=== PATIENT | female | born 1985 | race Caucasian/White ===

== ENCOUNTER 2016-11-23 11:07 | Emergency (ER) | payer OTHER ==
[~2016-11-23] VITALS: Ht 147.3 cm; Wt 61.2 kg
[2016-11-23 11:13] VITALS: BP 105/63
--- NOTE | 2016-11-23 12:18 | NUR ---
Patient ambulated to bed 07.
--- NOTE | 2016-11-23 12:21 | NUR ---
31/F presents to ED for evaluation of N/V and abdominal pain x4 days. Patient states she has hx of cyclic vomiting syndrome. Pt also reports being approximately 5 weeks . Pt is G-1. Pt also states that d/t her condition she wants to terminate this pregancy d/t the effects on her body. Patient has had no vomiting while in ED today. Pt c/o 10/10 pain, to abdominal area. Pt is AOX4, clear speech, ambulates with steady gait. VSS.
--- NOTE | 2016-11-23 12:59 | NUR ---
Dr. Wesley evaluating patient at bedside.
--- NOTE | 2016-11-23 13:03 | NUR ---
Lab at bedside.
[2016-11-23 13:11] LABS: BASOPHILS # (AUTO) 0.2 K/uL (0.00-0.22); BASOPHILS % (AUTO) 2.2 % (0.0-2.0); EOSINOPHILS # (AUTO) 0.1 K/uL (0-0.4); EOSINOPHILS % (AUTO) 0.9 % (0.0-4.0); HEMOGLOBIN 14.5 g/dL (12.0-16.0); LYMPHOCYTES # (AUTO) 1.4 K/uL (2.5-16.5); LYMPHOCYTES % (AUTO) 19.5 % (20.5-51.1); MEAN CORPUSCULAR HEMOGLOBIN 27 pg (27-31); MEAN CORPUSCULAR HGB CONC 33 g/dL (33-37); MEAN CORPUSCULAR VOLUME 83 fL (80-94); MONOCYTES # (AUTO) 0.4 K/uL (0.8-1.0); MONOCYTES % (AUTO) 5.1 % (1.7-9.3); NEUTROPHILS # (AUTO) 4.8 K/uL (1.8-7.7); NEUTROPHILS % (AUTO) 72.3 % (42.2-75.2); PLATELET COUNT (AUTO) 243 K/uL (140-450); RED CELL DISTRIBUTION WIDTH 14.5 % (11.6-13.7); WHITE BLOOD COUNT (AUTO) 6.9 K/uL (4.8-10.8)
[2016-11-23] MEDS ORDERED: ONDANSETRON 4 MG/2 ML VIAL IVP ONE (13:25)
[2016-11-23] MEDS ORDERED: MORPHINE SULFATE 2 MG/ML SYR IVP ONE (13:25)
[2016-11-23] MEDS ORDERED: NACL 0.9% 1,000 ML IV ONE (13:25)
--- NOTE | 2016-11-23 13:29 | NUR ---
US at bedside.
[2016-11-23 13:41] LABS: APPEARANCE,URINE CLEAR (CLEAR); BILIRUBIN,URINE NEGATIVE (NEGATIVE); BLOOD, URINE NEGATIVE (NEGATIVE); COLOR,URINE YELLOW (YELLOW); LEUKOCYTE ESTERASE ,URINE NEGATIVE (NEGATIVE); NITRITE, URINE NEGATIVE (NEGATIVE); PROTEIN,URINE NEGATIVE (NEGATIVE); UGLUCOSE NEGATIVE (NEGATIVE); UROBILINOGEN,URINE 0.2 EU/dL (0.2 - 1)
[2016-11-23 13:43] LABS: ANION GAP 17.9 (8-16); CARBON DIOXIDE 20.9 mmol/L (21-32); POTASSIUM 3.8 mmol/L (3.5-5.1)
[2016-11-23 13:44] LABS: CREATININE 0.7 mg/dL (0.6-1.3)
[2016-11-23 13:59] LABS: BACTERIA,URINE 2+ /HPF (None Seen); RBC,URINE 0-3 /HPF (0-5)
--- NOTE | 2016-11-23 13:59 | NUR ---
Patient provided with warm blankets, lights dimmed, placed in positon of comfort. VSS.
--- NOTE | 2016-11-23 14:03 | NUR ---
Dr. Wesley re-evaluating patient at bedside.
--- NOTE | 2016-11-23 14:12 | NUR ---
Pt is requesting more pain medication and is requesting to have Phenergan for nausea, states that she tolerates it better and that's what she takes at home. Dr. Wesley made aware and he said he was not going to give her those medications because the patient is . I advised the patient and she states she is going to terminate the . I explained to the patient the doctor will not give it to her because she is currently at this time and wants her to receive definitive treatment for the . Pt verbalized understanding.
--- NOTE | 2016-11-23 14:43 | NUR ---
IV removed, catheter intact and site benign. Applied folded 4x4 gauze and tape to stop bleeding.
[2016-11-23 14:50] VITALS: BP 106/74
--- NOTE | 2016-11-23 14:50 | NUR ---
Patient discharged with v/s stable. Written and verbal after care instructions given and explained. Patient alert, oriented and verbalized understanding of instructions. Ambulatory with steady gait. All questions addressed prior to discharge. ID band removed. Patient advised to follow up with PMD. Rx of TRAMADOL,ZOFRAN given. Patient educated on indication of medication including possible reaction and side effects. Opportunity to ask questions provided and answered.
--- NOTE | 2016-11-23 14:50 | NUR ---
Chart checked and completed. The patient's care was reviewed and supervised by Simin Almaraz RN.
== END 2016-11-23 14:50 | disposition home or self-care (01) ==
LOC: MED 11:07
DX: O21.0 Mild hyperemesis gravidarum (principal); O26.891 Other specified pregnancy related conditions, first trimester; R10.9 Unspecified abdominal pain; Z88.6 Allergy status to analgesic agent; Z88.5 Allergy status to narcotic agent; Z3A.01 Less than 8 weeks gestation of pregnancy
CPT/HCPCS: 36415; 76801; 80048; 81001; 81025; 84702; 85025; 86900; 86901; 87086; 96361; 96374; 96375; 99285; J2270; J2405; J7030; Q0092